=== PATIENT | female | born 1965 | race Caucasian/White ===

== ENCOUNTER 2020-02-04 09:15 | Outpatient (CLI) | payer OTHER, SELFPAY ==
--- NOTE | 2020-02-04 09:29 | MM_ITS ---
WS: [id number] BILATERAL DIGITAL SCREENING MAMMOGRAPHY WITH CAD CLINICAL INFORMATION: SCREEN HISTORY: Screening mammogram. No current complaints. COMPARISON: September 22, 2018 TECHNIQUE: Bilateral CC and MLO views. FINDINGS: Scattered fibroglandular densities bilaterally. No suspicious focal mass, asymmetry, calcifications, or architectural distortion. No evidence of malignancy. MM/[place] [id number] IMPRESSION: BI-RADS: 1-Negative FOLLOW UP: 1 Year Follow-up Recommend return to annual screening mammography.
== END 2020-02-04 09:16 | disposition home or self-care (01) ==
PROVIDERS: PCP Internal Medicine; Visit Provider Obstetrics & Gynecology
DX: Z12.31 Encounter for screening mammogram for malignant neoplasm of breast (principal)
CPT/HCPCS: 77067

== ENCOUNTER → 2020-04-05 14:00 | Outpatient (BNVA) | payer OTHER, SELFPAY | PROVIDERS: PCP Internal Medicine; Visit Provider Nurse Practitioner Family | DX: R05 Cough (principal); R09.81 Nasal congestion; Z20.828 Contact with and (suspected) exposure to other viral communicable diseases | CPT/HCPCS: 87635 ==

== ENCOUNTER → 2020-06-16 11:42 | Outpatient (BNVA) | payer OTHER, SELFPAY | PROVIDERS: PCP Internal Medicine; Visit Provider Internal Medicine | DX: Z00.00 Encounter for general adult medical examination without abnormal findings (principal); K75.81 Nonalcoholic steatohepatitis (NASH) | CPT/HCPCS: 80053; 80061; 83036; 84443; 85025 ==

== ENCOUNTER 2020-11-29 13:32 | Emergency (ER) | payer OTHER, SELFPAY ==
[2020-11-29 13:37] VITALS: BP 174/94; PULSE 72; RESP 16; TEMP 36.3; O2SAT 98; BMI 31.1
--- NOTE | 2020-11-29 14:47 | XR_ITS ---
WS: [id number] ABDOMEN 1 VIEW(S) HISTORY: abd pain, ? Kidney stone COMPARISON: 12/15/2008 Moderate amount of fecal material throughout the colon. No obstructive pattern. Ovoid 6 mm calcification in the LEFT upper abdomen may be within the kidney. No ureteral calcificatio ns. No bone abnormality. XR/XR KUB 71968 IMPRESSION: LEFT abdominal calcification. May be a LEFT renal calcification.
--- NOTE | 2020-11-29 15:23 | ED_ITS ---
HPI - Female Genitourinary General: Chief complaint: Urogenital-Female Stated complaint: AB/BACK PAIN, POSS KINDEY STONE Time Seen by Provider: 11/29/20 15:23 Source: patient Mode of arrival: ambulatory Limitations: no limitations History of Present Illness: HPI Narrative: 55-year-old female patient presents to the emergency department with left back and lower pelvic pain. She was advised to come to the ED under the direction of urgent care due to possible kidney stone. Ms. George reports history of kidney stones but has been 15 years since her last episode. She reports difficulty with urination, emptying her bladder. Onset of pain started this morning. She denies fever chills, she is experiencing nausea but no vomiting. MD elicited complaint: pelvic pain, back pain and flank pain Onset (ago): hour(s) (5-6) Severity: similar to previous episodes Female Urogenital Radiation: Suprapubic and L Flank Severity scale (1-10): 8 Quality of pain: sharp and aching Consistency: constant and progressively worsening Vaginal bleeding: none Urinary symptoms: Difficulty Urinating (Emptying her bladder) Exacerbating factors: movement Associated symptoms: Reports abdominal pain and nausea; Deny headache(s) Treatment prior to arrival: none Patient : No Review of Systems General: Reports: 10 or more systems reviewed and unremarkable except in HPI and below Const: Denies: fever(s), chills or diaphoresis Eyes: Denies: blurry vision or eye redness ENMT: Denies: throat pain, dental pain or disequilibrium Card: Denies: chest pain, palpitations or irregular heart rhythm Resp: Denies: dyspnea, productive cough, non-productive cough or wheezing GI: Reports: abdominal pain and nausea; Denies: vomiting, heartburn or diarrhea : Denies: difficulty voiding or dysuria Musc: Denies: back pain, extremity pain, joint swelling, joint warmth or joint stiffness Skin/Breast: Denies: rash or pruritus Neuro: Denies: headache(s), weakness in extremities or behavioral changes Christoph/Lymph: Denies: easy bruising PFS ED PFSH: Medical History History of 2019 novel coronavirus disease (COVID-19) Hypertension Family History Father Stroke Mother Cancer Other Diabetes Social History Smoking and tobacco status: never smoked Alcohol intake: current Alcohol intake frequency: holidays/special occasions only Adopted: No Marital status: Number of children: 2 service: No History of recent travel: No Current gender identity: Female Physical Exam Const: COMMON NORMALS: no acute distress, average body habitus, patient oriented x3, healthy appearing and alert GENERAL APPEARANCE: cooperative, well kempt, well developed, anxious and well hydrated ORIENTATION/CONSCIOUSNESS: Yes awake, Yes oriented to person, Yes oriented to place and Yes oriented to time HENMT: COMMON NORMALS: normocephalic, atraumatic, Normal external nose present and moist oral mucous membranes HEAD & SCALP: normocephalic and atraumatic FACE & SINUS: normal facial exam and face symmetric NOSE: Normal external nose present Eye: COMMON NORMALS: Equal, round and reactive pupils present and EOMs intact bilaterally GENERAL EYE: appearance normal, both eyes and all related structures PUPIL: Yes Equal, round and reactive pupils present Neck/C-Spine: COMMON NORMALS: full ROM and no lymphadenopathy GENERAL: Yes normal visual inspection and Yes trachea midline CERVICAL SPINE: Yes cervical ROM normal Lymph: LYMPHATIC: no lymphadenopathy noted Chest: COMMONS NORMALS: normal inspection of the chest Resp: COMMON NORMALS: normal respiratory effort and clear to auscultation bilaterally AUSCULTATION: clear to auscultation bilaterally Cardio: COMMON NORMALS: regular rate, regular rhythm, S1 normal heart sound present, S2 normal heart sound present and Peripheral pulses 2+ throughout RATE: regular rate RHYTHM: regular rhythm HEART SOUNDS: S1 normal heart sound present and S2 normal heart sound present PERIPHERAL PULSES: Peripheral pulses 2+ throughout GI: COMMON NORMALS: Normal to inspection, nondistended, normoactive bowel sounds present and Soft to palpation INSPECTION: Yes normal to inspection, No abdominal wall ecchymosis, No abdominal distension and Yes central obesity PALPATION: Yes Soft to palpation Back/Pelvis: COMMON NORMALS: thoracic and lumbar spine normal to inspection, no thoracic nor lumbar tenderness, thoraco-lumbar ROM normal and straight leg raise negative bilaterally GENERAL BACK: Yes CVA tenderness CVA tenderness: left Extremity: COMMON NORMALS: normal to inspection, full ROM, capillary refill normal and no pedal edema GENERAL: Yes normal exam except as noted Neuro: COMMON NORMALS: patient oriented x3 and no focal motor deficits SENSORIUM/ORIENTATION: Yes alert, Yes oriented to person, Yes oriented to place and Yes oriented to time Psych: COMMON NORMALS: mental status grossly normal, Normal thought process present and cooperative APPEARANCE: Yes well kempt ACTIVITY/MOTOR BEHAVIOR: Yes appropriate eye contact THOUGHT PROCESS: Normal thought process present Skin: COMMON NORMALS: no rashes or lesions noted and turgor normal GENERAL SKIN EXAM: no rashes or lesions noted and turgor normal Course ED course: 55-year-old female patient presents to the emergency department with left flank and back pain. CT renal stone protocol findings for 4.5 mm mid ureteral stone appreciated. She is medicated with morphine Zofran, promethazine for nausea and pain. Initial dose of Flomax provided here in the ED. Spoke with Dr. Whittaker who advised patient to follow-up in his office on Saturday, order for patient to be n.p.o. after midnight on Saturday in the event surgical intervention will be needed, outpatient KUB prior to appointment provided. She was also provided with urine strainer. Pain was controlled here in the ED with morphine. Nausea resolved. Consultations: Consultation #1: Dr. Whittaker, discussed findings CT abdomen, renal stone protocol of 4.5 mm mid ureteral stone. Serology and urine results discussed. Advised to continue Flomax daily, follow-up in his office on Saturday morning, patient to be n.p.o. after midnight Saturday night, KUB abdomen prior to office visit. Covid PCR screen also advised In the event surgical intervention is needed. Time: 17:15 Vital Signs: Vital signs: Vital Signs Temperature 97.3 F L 11/29/20 13:37 Pulse Rate 71 11/29/20 17:02 Respiratory Rate 14 11/29/20 17:02 Blood Pressure 126/85 11/29/20 17:02 Pulse Oximetry 95 11/29/20 17:02 MDM - Female 2 Lab Data: Labs: Lab Results 11/29/20 11/29/20 Range/Units 16:15 16:15 WBC 9.4 (4.0-10.0) 10^3/ uL RBC 5.84 H (4.1-5.3) 10^6/u L Hgb 15.7 H (11.5-15.3) g/dL Hct 49.4 H (37.0-47.0) % MCV 84.6 (81-99) fL MCH 26.9 L (28.0-34.0) pg MCHC 31.8 (30.0-36.0) g/dL RDW 13.2 (12.1-15.1) % Plt Count 235 (130-400) 10^3/c mm MPV 11.2 H (7.4-10.4) fL Neut % (Auto) 70.9 % Lymph % (Auto) 22.7 % [place] % (Auto) 5.1 % Eos % (Auto) 0.7 % Baso % (Auto) 0.3 % Neut # (Auto) 6.65 (1.8-7.7) 10^3/u L Lymph # (Auto) 2.1 (0.8-4.8) 10^3/u L [place] # (Auto) 0.5 (0.2-0.9) 10^3/u L Eos # (Auto) 0.1 (0.0-0.8) 10^3/u L Baso # (Auto) 0.0 (0.0-0.1) 10^3/u L Nucleated RBC % (a uto) 0 % Nucleated RBCs # 0.0 /100WBC Sodium 132 L (136-145) mmol/L Potassium 4.0 (3.5-5.1) mmol/L Chloride 93 L (98-107) mmol/L Carbon Dioxide 28 (22-29) mmol/L Anion Gap 15.0 (5-19) BUN 17 (6-20) mg/dL Creatinine 0.7 (0.5-0.9) mg/dL GFR Calculation 86.2 L (90-130) mL/min Glucose 128 H (65-115) mg/dL Calculated Osmolal ity 277 L (285-295) mOsm/k g Calcium 9.8 (8.5-10.5) mg/dL Total Bilirubin 0.5 (0.15-1.2) mg/dL AST 23 (0-32) U/L ALT 17 (0-33) U/L Alkaline Phosphata se 142 H (35-105) IU/L Total Protein 8.4 (6.6-8.7) g/dL Albumin 4.9 (3.5-5.2) g/dL Globulin 3.5 (1.3-4.6) g/dL Lipase 34 (13-60) U/L Imaging Data: Xray Ortho: Radiologist's impression: [facility] [address] [place] [address] XRay Report Signed Patient: Arianne Georgeit #: [id number] : 1965Acct#:[id number] Age/Sex: 55 / FADM Date: 11/29/20 Loc: ERRoom/Bed: Attending Dr: Ordering Provider/Ordering MD: Gabriela Galo Date of Service: 11/29/20 Procedure(s): XR KUB 46883 Accession Number(s): [id number] Report Number: [id number] WS: [id number] ABDOMEN 1 VIEW(S) HISTORY: abd pain, ? Kidney stone COMPARISON: 12/15/2008 Moderate amount of fecal material throughout the colon. No obstructive pattern. Ovoid 6 mm calcification in the LEFT upper abdomen may be within the kidney. No ureteral calcifications. No bone abnormality. XR/XR KUB 54023 IMPRESSION: LEFT abdominal calcification. May be a LEFT renal calcification. Dictated By:Nessa Barclay DO Signed By:Nessa Barclay DOSigned Date/Time:11/29/20 1503 DD/ 1502 Other Xray: Radiologist's impression: [facility] [address] [place] [address] Scan Report Signed Patient: Arianne George Unit #: [id number] : 1965 Age/Sex: 55 / F ADM Date: 11/29/20 Loc: ER Room/Bed: Attending Dr: Ordering Provider/Ordering MD: Gabriela Galo Date of Service: 11/29/20 Procedure(s): CT kidney stone 66907 Accession Number(s): [id number] Report Number: [id number] PROCEDURE INFORMATION: Exam: CT Abdomen And Pelvis Without Contrast Exam date and time: 11/29/2020 3:33 PM Age: 55 years old Clinical indication: Abdominal pain; Localized; Left; Additional info: Left abd pain, ? kidney stone TECHNIQUE: Imaging protocol: Computed tomography of the abdomen and pelvis without contrast. Radiation optimization: All CT scans at this facility use at least one of these dose optimization techniques: automated exposure control; mA and/or kV adjustment per patient size (includes targeted exams where dose is matched to clinical indication); or iterative reconstruction. COMPARISON: RI XR KUB 18969 11/29/2020 2:58 PM RADIATION DOSE METRICS: Total DLP (mGy-cm): 1000.98 FINDINGS: Lungs: No significant abnormaility demonstrated. Liver: The liver is unremarkable in appearance. Gallbladder and bile ducts: No calcified gallstones in the gallbladder. No gallbladder wall thickening. No pericholecystic fluid. No biliary dilatation. Pancreas: The pancreas is normal in appearance. No pancreatic duct dilatation. Spleen: The spleen is normal in size and appearance. Adrenal glands: The adrenal glands appear within normal limits. Kidneys and ureters: Mild left hydroureteronephrosis. There is a 4.5 mm mid left ureteral calculus. Findings are consistent with left obstructive uropathy. Bilateral nephrolithiasis. Nonobstructing renal calculi are noted, measuring up to 5 mm in diameter. The largest calculus is seen in the mid left kidney. There are simple appearing parapelvic renal cysts, measuring up to 1.5 cm in diameter. No cortical renal cysts or masses. Stomach and bowel: Diverticulosis of the colon; no acute diverticulitis. No acute gastric abnormality demonstrated. The small bowel is unremarkable as demonstrated. Appendix: The appendix is normal in appearance. No evidence of appendicitis. Intraperitoneal space: No free air. No significant fluid collection. Vasculature: Minimal atherosclerosis of the aorta. No aneurysm. Lymph nodes: No enlarged lymph nodes. Urinary bladder: The urinary bladder is unremarkable in appearance. Reproductive: The uterus is not visualized, consistent with hysterectomy. Bones/joints: Degenerative changes throughout the lumbar spine. No acute osseous abnormality. Soft tissues: The abdominal wall demonstrates a small umbilical hernia, containing only fat. CT/CT kidney stone [id number] IMPRESSION: 1. Mild left hydroureteronephrosis. There is a 4.5 mm mid left ureteral calculus. Findings are consistent with left obstructive uropathy. 2. Bilateral nephrolithiasis. Nonobstructing renal calculi are noted, measuring up to 5 mm in diameter. The largest calculus is seen in the mid left kidney. 3. Diverticulosis of the colon; no acute diverticulitis. 4. The abdominal wall demonstrates a small umbilical hernia, containing only fat. Radiation Dose CTDIVOL = (mGy): DLP = 1000.98 (mGy-cm) Dictated By: Nam Juarez MD Signed By: Nam Juarez MD Signed Date/Time: 11/29/20 1616 Discharge Plan Discharge Patient Disposition: Home Clinical Impression: Renal colic on left side, Kidney stone on left side Condition: Stable Prescriptions: New hydrocodone-acetaminophen 5-325 mg tablet 1 tab PO Q4H PRN (Reason: pain) Qty: 14 RF: 0 promethazine 25 mg tablet 25 mg PO Q6H PRN (Reason: nausea and vomiting) Qty: 20 RF: 0 Flomax 0.4 mg capsule 0.4 mg PO DAILY Qty: 14 RF: 0 No Action estradiol [Vivelle-Dot] 0.05 mg/24 hr patch semiweekly See Rx Instructions .ROUTE .COMPLEX RF: 0 Flonase 50 mcg/actuation [place],Suspension 2 spray INTRANASAL DAILY PRN (Reason: Allergy Symptoms) RF: 0 Claritin 10 mg Tablet 10 mg PO DAILY PRN (Reason: Allergy Symptoms) RF: 0 metoprolol tartrate 100 mg tablet 100 mg PO DAILY@21 RF: 0 meloxicam 15 mg tablet 15 mg PO QAM RF: 0 Aldactazide 25-25 mg tablet 1 tab PO DAILY RF: 0 amlodipine 5 mg tablet 5 mg PO DAILY@21 RF: 0 Discharge Orders: Discharge ED (Routine); Ordered 11/29/20 Ordered By: Gabriela Galo Referrals: Frantz Davis MD [Primary Care Provider] - Discharge Diet: Usual diet Discharge Activity: Limit activity as instructed Patient Instructions: Kidney Stones (ED), Abdominal Pain (ED), Opioid Safety Activity Restrictions/Additional Instructions: Return the emergency department if you develop abdominal pain despite use of hydrocodone and is not controlled, or if you develop fever or chills Continue to strain urine with urine strainer, placed stone in urine cup if collected and take to Dr. Whittaker's office Saturday visitor services technician will be contacting you with an appointment with Dr. Whittaker on Saturday, prior to this appointment, you are to come to the hospital and have an x-ray of your belly, prescription/order has been provided Drink lots of fluids Nothing to eat or drink after midnight Saturday night, surgical intervention may be needed on Saturday. COVID-19 PCR screen completed due to possible surgical intervention that could be warranted Saturday. Coding Level of Care Code ED E Commerce Solution Architect for [employer] Fwd Exam Comprehensive
--- NOTE | 2020-11-29 15:30 | PC.PHAR ---
PT STATE SHE TAKES CARE OF HER OWN MEDICATIONS-PT STATES SHE IS ONLY TAKING HER SPIRONOLACTONE/HCTZ PRN-PT STATES SHE HASNT TAKEN IN A WHILE-EXT MED HISTORY SHOWS LAST FILLED ON 11/22/20
[2020-11-29 16:23] LABS: Basophils % 0.3 %; Eosinophils # 0.1 10^3/uL (0.0-0.8); Eosinophils % 0.7 %; Hematocrit 49.4 % (37.0-47.0); Hemoglobin 15.7 g/dL (11.5-15.3); Lymphocytes # 2.1 10^3/uL (0.8-4.8); Lymphocytes % 22.7 %; Mean Corpuscular HGB Conc 31.8 g/dL (30.0-36.0); Mean Corpuscular Hemoglobin 26.9 pg (28.0-34.0); Mean Corpuscular Volume 84.6 fL (81-99); Mean Platelet Volume 11.2 fL (7.4-10.4); Monocytes # 0.5 10^3/uL (0.2-0.9); Monocytes % 5.1 %; Neutrophils # 6.65 10^3/uL (1.8-7.7); Neutrophils % 70.9 %; Nucleated Red Blood Cells % 0 %; Platelet Count 235 10^3/cmm (130-400); Red Blood Count 5.84 10^6/uL (4.1-5.3); Red Cell Distribution Width 13.2 % (12.1-15.1); White Blood Count 9.4 10^3/uL (4.0-10.0)
[2020-11-29] MEDS: ondansetron 2 mg/ML SDV 2 mL 4 MG IVP (16:24)
[2020-11-29] MEDS: morphine 4 mg/mL SDV 1 mL IVP (16:24)
[2020-11-29 16:51] LABS: Alanine Aminotransferase 17 U/L (0-33); Albumin Level 4.9 g/dL (3.5-5.2); Alkaline Phosphatase 142 IU/L (35-105); Aspartate Amino Transferase 23 U/L (0-32); Blood Urea Nitrogen 17 mg/dL (6-20); Calcium 9.8 mg/dL (8.5-10.5); Carbon Dioxide 28 mmol/L (22-29); Chloride 93 mmol/L (98-107); Globulin 3.5 g/dL (1.3-4.6); Glomerular Filtration Rate 86.2 mL/min (90-130); Glucose 128 mg/dL (65-115); Lipase 34 U/L (13-60); Osmolality Calculated 277 mOsm/kg (285-295); Sodium 132 mmol/L (136-145); Total Bilirubin 0.5 mg/dL (0.15-1.2); Total Protein 8.4 g/dL (6.6-8.7)
[2020-11-29 17:02] VITALS: BP 126/85; PULSE 71; RESP 14; O2SAT 95
[2020-11-29] MEDS: sodium chloride 0.9% 1,000 ML 999 ML IV (17:02)
[2020-11-29] MEDS: promethazine 25 mg Tablet PO (17:03)
[2020-11-29] MEDS: tamsulosin 0.4 mg Capsule PO (17:03)
[2020-11-29 18:12] VITALS: BP 118/74; PULSE 80; RESP 12; O2SAT 96
--- NOTE | 2020-11-29 20:09 | PC.NURSE ---
PCR swab collected, returned to lab
--- NOTE | 2020-11-30 10:12 | DCPLANNER ---
human resources operations manager had message to schedule a follow up appointment for patient with Dr. Whittaker. human resources operations manager spoke with Kathy, gave clinic patients information. human resources operations manager was told that patients information would be printed and reviewed. Clinic will call patient with appointment information.
--- NOTE | 2020-12-01 08:38 | DCPLANNER ---
Patient has a follow up appointment scheduled for Saturday, December 05, [address] at 7:[address] Whittaker. Clinic will call patient with appointment information.
--- NOTE | 2020-12-14 10:34 | DCPLANNER ---
Patient had a follow up appointment scheduled with Dr. Whittaker - patient did attend appointment.
== END 2020-11-29 18:13 | disposition home or self-care (01) ==
PROVIDERS: Emergency Provider Nurse Practitioner Family; PCP Internal Medicine
DX: N20.0 Calculus of kidney (principal); I10 Essential (primary) hypertension
CPT/HCPCS: 74018; 74176; 80053; 81003; 83690; 85025; 87086; 96374; 96375; 99284; J2270; J2405; J7030; Q0169

== ENCOUNTER 2020-12-09 07:26 | Outpatient (CLI) | payer OTHER, SELFPAY ==
--- NOTE | 2020-12-09 07:30 | XR_ITS ---
WS: [id number] KUB, AP view, 12/09/2020 Clinical Data: KIDNEY STONE Comparison: KUB, 11/29/2020 Findings: No abnormal intraabdominal masses are seen. There is no dilatated small bowel or evidence of obstruct ion. There is a 0.6 cm calcification overlying the midportion of left kidney. Fecal material obscures deta il over both kidneys. No calcifications are seen in the true pelvis. XR/XR KUB [id number] IMPRESSION: No change in possible left renal calcification.
== END 2020-12-09 07:27 | disposition home or self-care (01) ==
PROVIDERS: PCP Internal Medicine; Visit Provider Nurse Practitioner Family
DX: N20.0 Calculus of kidney (principal)
CPT/HCPCS: 74018; 81003; 82365; 88300

== ENCOUNTER 2021-06-12 07:40 | Outpatient (CLI) | payer OTHER, SELFPAY ==
--- NOTE | 2021-06-12 07:45 | XR_ITS ---
WS: [id number] XR KUB 77438 REASON FOR EXAM: bilateral renal stones FINDINGS: CT scan 11/29/2020 demonstrates 3 calculi within the left kidney. The 2 larger calculi, one in the mid left kidney and one in the left lower kidney, are identified. Third calculus is smaller and not iden tified. The 2 small calculi identified on the previous CT scan are not identified. Within the right kidney or along the course of the right ureter. No calculi are identified overlying the pelvis. No other significant abnormality. XR/XR KUB 76510 IMPRESSION: Urinary tract calculi as above.
== END 2021-06-12 07:41 | disposition home or self-care (01) ==
PROVIDERS: PCP Internal Medicine; Visit Provider Urology
DX: N20.0 Calculus of kidney (principal)
CPT/HCPCS: 74018; 81003

== ENCOUNTER → 2021-06-15 15:20 | Outpatient (BNVA) | payer OTHER, SELFPAY | PROVIDERS: PCP Internal Medicine; Visit Provider Internal Medicine | DX: Z00.00 Encounter for general adult medical examination without abnormal findings (principal) | CPT/HCPCS: 80053; 80061; 84443 ==

== ENCOUNTER 2021-10-02 14:14 | Outpatient (CLI) | payer OTHER, SELFPAY ==
--- NOTE | 2021-10-02 14:21 | MM_ITS ---
WS: [id number] BILATERAL DIGITAL SCREENING MAMMOGRAPHY WITH CAD CLINICAL INFORMATION: SCREENING HISTORY: Screening mammogram. No current complaints. COMPARISON: February 04, 2020 TECHNIQUE: Bilateral CC and MLO views. FINDINGS: Scattered fibroglandular densities bilaterally. 4 mm asymmetric density central right breast unchange d compared to 2016. No suspicious focal mass, asymmetry, calcifications, or architectural distortion. No evidence of malignancy. MM/[place] [address] IMPRESSION: BI-RADS: 2-Benign FOLLOW UP: 1 Year Follow-up Recommend return to annual screening mammography.
== END 2021-10-02 14:15 | disposition home or self-care (01) ==
LOC: RADSHAW 14:19
PROVIDERS: PCP Internal Medicine; Visit Provider Obstetrics & Gynecology
DX: Z12.31 Encounter for screening mammogram for malignant neoplasm of breast (principal)
CPT/HCPCS: 77067

== ENCOUNTER 2022-07-10 12:00 | Outpatient (CLI) | payer OTHER, SELFPAY ==
--- NOTE | 2022-07-10 12:39 | XR_ITS ---
WS: [id number] KUB, AP view, 07/10/2022 Clinical Data: STONES Comparison: KUB, 06/12/2021. Findings: There are 2 calcifications overlying the left kidney. No abnormal intraabdominal masses are seen. There is no dilatated small bowel or evidence of obstruct ion. There is a moderate amount of fecal material in the colon. 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 XR/XR KUB 43720 Impression: Left renal calcifications.
== END 2022-07-10 12:01 | disposition home or self-care (01) ==
PROVIDERS: PCP Physician Assistant; Visit Provider Urology
DX: N20.0 Calculus of kidney (principal)
CPT/HCPCS: 74018

== ENCOUNTER 2022-11-08 10:36 | Outpatient (CLI) | payer OTHER, SELFPAY ==
--- NOTE | 2022-11-08 10:44 | MM_ITS ---
WS: [id number] SCREENING DIGITAL TOMOSYNTHESIS MAMMOGRAM WITH CAD HISTORY: SCREENING COMPARISON: 03/28/2016, 09/22/2018 and 10/02/2021 Bilateral CC and MLO with tomosynthesis views submitted. Synthetic mammography reviewed. Computer aid ed detection analyzed. Breast composition: There are scattered areas of fibroglandular density. No suspicious masses, microc alcifications or architectural distortion. No interval change. Asymmetry in the central RIGHT breast is stable and also visualized in 2016. MM/[place] [id number] IMPRESSION: BI-RADS: 2-Benign FOLLOW UP: 1 Year Follow-up
== END 2022-11-08 10:37 | disposition home or self-care (01) ==
LOC: RAD 10:37
PROVIDERS: PCP Physician Assistant; Visit Provider Physician Assistant
DX: Z12.31 Encounter for screening mammogram for malignant neoplasm of breast (principal)
CPT/HCPCS: 77063; 77067

== ENCOUNTER 2024-06-17 10:14 | Outpatient (CLI) | payer OTHER, SELFPAY ==
--- NOTE | 2024-06-17 10:17 | MM_ITS ---
WS: [id number] SCREENING DIGITAL BREAST TOMOSYNTHESIS MAMMOGRAM WITH CAD HISTORY: SCREENING COMPARISON: 09/22/2018, 02/04/2020, 11/08/2022 Bilateral CC and MLO with tomosynthesis and synthetic mammography submitted. Computer aided detection analyzed. Breast composition: There are scattered areas of fibroglandular density. New focal asymmetry in the c entral RIGHT breast measures 6 mm. On the lateral projection there is an asymmetry centrally which ma y or may not correspond to the finding on the CC projection. No suspicious findings LEFT breast. MM/MM [facility] tomosynthesis [id number] IMPRESSION: BI-RADS: 0 - Incomplete: Need additional imaging evaluation. FOLLOW UP: Need Additional Imaging RIGHT breast: Spot compression views (CC and MLO). True ML. Ultrasound to follo w if abnormality persists.
== END 2024-06-17 10:15 | disposition home or self-care (01) ==
LOC: RAD 10:15
PROVIDERS: PCP Physician Assistant; Visit Provider Physician Assistant
DX: Z12.31 Encounter for screening mammogram for malignant neoplasm of breast (principal)
CPT/HCPCS: 77063; 77067

== ENCOUNTER 2024-08-11 12:13 | Outpatient (CLI) | payer OTHER, SELFPAY ==
--- NOTE | 2024-08-11 13:42 | MM_ITS ---
WS: [id number] ADDITIONAL VIEWS RIGHT MAMMOGRAM WITH DIGITAL BREAST TOMOSYNTHESIS. RIGHT BREAST ULTRASOUND HISTORY: ABNORMAL MAMMO COMPARISON: 06/17/2024, 11/08/2022 RIGHT MAMMOGRAM: Spot compression views and true ML with digital breast tomosynthesis and SM. Asymmetries in the central and upper outer quadrant of the RIGHT breast nearly completely resolves wi th additional imaging. There is a persistent band of mild asymmetry in the upper outer quadrant which will be evaluated by ultrasound. There is no architectural distortion or calcification. RIGHT BREAST ULTRASOUND 2-D and color Doppler imaging submitted. Ultrasound directed to the upper outer quadrant No shadowing or solid mass. There is a very small cyst measures 0.4 x 0.5 x 0.4 cm at 11:00, 1 cm fro m the nipple. MM/MM diag RT tomosynthesis [id number] IMPRESSION: BI-RADS: 2- Benign FOLLOW UP: 1 Year Follow-up
== END 2024-08-11 12:14 | disposition home or self-care (01) ==
PROVIDERS: PCP Physician Assistant; Visit Provider Physician Assistant
DX: N60.01 Solitary cyst of right breast (principal)
CPT/HCPCS: 76642; 77061; G0279